=== PATIENT | female | born 1945 | race Caucasian/White ===

== ENCOUNTER 2021-03-02 11:18 | Outpatient (REF) | payer MEDICARE, SELFPAY ==
[2021-03-02 12:23] LABS: MANUAL DIFF FLAG NO
[2021-03-02 12:27] LABS: Basophils Percent Auto 0.4 % (0-2); Eosinophils Absolute Auto 0.1 X10*3/uL (0.0-0.4); Eosinophils Percent Auto 1.3 % (0-4); Hematocrit 43.9 % (37-47); Hemoglobin 13.9 g/dl (12.0-16.0); Imm Gran Abs Auto 0.02 X10*3/uL (0.00-0.03); Imm Gran Pct Auto 0.3 % (0.0-0.4); Lymphocytes Absolute Auto 1.4 X10*3/uL (1.2-4.9); Lymphocytes Percent Auto 19.8 % (20-40); Mean Corpuscular HGB Conc 31.7 g/dl (31.0-35.0); Mean Corpuscular Hemoglobin 28.8 pg (27.0-33.0); Mean Corpuscular Volume 90.9 fL (80-98); Mean Platelet Volume 10.7 fL (9.4-12.3); Monocytes Absolute Auto 0.5 X10*3/uL (0.1-1.2); Monocytes Percent Auto 6.7 % (2-11); Neutrophils Percent Auto 71.5 % (45-73); Platelet Count 242 X10*3/uL (160-400); Red Blood Count 4.83 X10*6/uL (4.20-5.50); Red Cell Distribution Width 14.5 % (11.0-16.0)
[2021-03-02 13:14] LABS: Anion Gap 15 (12-20); Blood Urea Nitrogen 15 mg/dL (9-16); Calcium 9.9 mg/dL (8.4-10.2); Carbon Dioxide 27 mmol/L (22-29); Chloride 103 mmol/L (96-108); Estimated Glomerular Filt Rate > 60; Glucose Random 90 mg/dL (60-115); Potassium 4.7 mmol/L (3.3-5.1); Sodium 140 mmol/L (135-145)
[2021-03-02 13:17] LABS: Erythrocyte Sedimentation Rate 7 MM/HR (0-20)
[2021-03-02 13:39] LABS: T4 Thyroxine 7.3 ug/dL (4.5-12.0)
[2021-03-07 13:31] LABS: Vitamin D 25-OH, D2 <4 ng/mL; Vitamin D 25-OH, D3 30 ng/mL; Vitamin D 25-OH, Total 30 ng/mL (30-100)
== END 2021-03-02 11:19 | disposition home or self-care (01) ==
LOC: HO.LAB 11:18
PROVIDERS: PCP Internal Medicine; Visit Provider Psychiatry & Neurology Neurology
DX: I63.9 Cerebral infarction, unspecified (principal)
CPT/HCPCS: 36415; 80048; 82306; 84436; 84443; 85025; 85652

== ENCOUNTER 2023-04-21 12:58 | Emergency (ER) | payer MEDICARE, SELFPAY ==
--- NOTE | ~2023-04-21 | XR_ITS ---
EXAMINATION: XR CHEST CLINICAL INFORMATION: Chest pain COMPARISON: Chest radiograph 01/13/2011 TECHNIQUE: Frontal view of the chest was obtained. FINDINGS: The heart and mediastinal borders are within normal limits. No focal consolidation. No pleural effusion. No pneumothorax. Surgical clips overlie the lower left neck. No acute displaced rib fracture. Prominent gas-filled loop of bowel in the right upper quadrant. XR/XR chest 1V IMPRESSION: No focal consolidation, pneumothorax, or pleural effusion.
--- NOTE | 2023-04-21 13:02 | ECG_ITS ---
Test Reason : CHEST PAIN Blood Pressure : / mmHG Vent. Rate : 092 BPM Atrial Rate : 092 BPM P-R Int : 168 ms QRS Dur : 086 ms QT Int : 356 ms P-R-T Axes : 042 -35 010 degrees QTc Int : 440 ms Sinus rhythm with occasional Premature ventricular complexes Possible Left atrial enlargement Left axis deviation Minimal voltage criteria for LVH, may be normal variant ( R in aVL ) Possible Anterolateral infarct , age undetermined Abnormal ECG When compared with ECG of 20-JUN-2006 07:45, Premature ventricular complexes are now Present Borderline criteria for Anterolateral infarct are now Present QRS axis Shifted left Referred By: Sofy Ponce Electronically Signed By:FANTA KOHLI
[2023-04-21 13:12] VITALS: BP 170/80; PULSE 93; RESP 18; TEMP 36.7; O2SAT 98; BMI 26.6
--- NOTE | 2023-04-21 13:13 | ED.CHESTPAIN ---
HPI - Chest Pain General Chief Complaint: Chest Pain Stated Complaint: chest pain Time Seen by Provider: 04/21/23 16:00 Source: patient and old records reviewed Mode of arrival: ambulatory Limitations: no limitations History of Present Illness HPI narrative: 78 yo female with history of CVA 2 years ago, hx HTN, hx endarterectomy who presents to the ER for evaluation of 2 separate episodes of central, nonradiating chest pain. She states 1st episode was yesterday at home after bending down to pick something up. Pain was central/lower chest, described as a tightness that lasted about 2-3 hours then subsided. No associated SOB, diaphoresis, nausea. She woke up this morning with a slight headache and some lightheadedness. She was at the grocery store when she developed the pain again in the same location. Lasted about an hour and then went away, resolved on arrival to the ER. Asymptomatic at this time. Patient denies hx similar episodes. No LE edema. Has been gaining some weight. Drinks 2 alcoholic beverages about 4 times per week. On arrival to the ER BP elevated 170-180s/80s. Baseline BP 120/60s. She states she has been compliant with her valsartan at home. complaint: chest pain Onset (ago): day(s) Timing of current episode: episodic Prior episodes: No Onset: during rest Pain location: substernal and epigastric Pain radiation: none Severity: moderate Quality: tightness Relieving factors: rest Exacerbating factors: nothing Treatment prior to arrival: none Risk Factors Coronary artery disease risk factors: hypertension Thoracic aortic dissection risk factors: none Related Data Home Medications Medication Instructions Recorded Confirmed atorvastatin 80 mg tablet (Lipitor) 80 mg PO BEDTIME 10/13/20 10/13/20 clopidogrel 75 mg tablet 75 mg PO DAILY 10/13/20 10/13/20 Previous Rx's Medication Instructions Recorded fenofibrate 54 mg tablet 54 mg PO DAILY 2 months #60 tabs 10/13/20 Allergies Allergy/AdvReac Type Severity Reaction Status Date / Time No Known Allergies Allergy Unverified 05/06/20 15:04 Review of Systems Review of Systems: Yes all other systems are reviewed and are negative PMFSH Past Medical History Medical History CVA (cerebral vascular accident) Hospital discharge follow-up Hypertension Osteopenia Surgical History H/O sinus surgery History of ankle surgery Social History Social History Alcohol intake: current Alcohol intake frequency: a few times a week Smoked in Last 30 Days: No Use of substances other than those prescribed or required for medical reasons: No Advance Directives: No Advance Directives Information Provided: Yes Physical Exam Vital Signs: Vital Signs: Last Vital Signs Temp 98.1 F 04/21/23 15:50 Pulse 78 04/21/23 17:28 Resp 13 04/21/23 17:28 BP 169/81 H 04/21/23 17:28 Pulse Ox 99 04/21/23 17:28 O2 Del Method Room Air 04/21/23 17:28 BMI result Body Mass Index 26.6 Appearance: Alert. Oriented X3. No acute distress. Head: normocephalic, atraumatic. Eyes: Pupils equal, round and reactive to light. ENT: Pharynx normal. No tonsillar swelling or exudate. Neck: Normal inspection. Neck supple. CVS: Normal heart rate and rhythm. Pulses normal. Respiratory: No respiratory distress. Breath sounds normal. Abdomen: Soft and nontender. +BS x4 Skin: Skin warm and dry. Normal skin color. Normal skin turgor. No rashes. Extremities: No lower extremity edema. No joint swelling. Neuro/psych: Oriented X 3. No motor deficit. No sensory deficit. CN II-XII intact. Normal speech and cognition. Course Course Course Narrative: RME: 78yo F w/PMHx CVA on ASA, presenting to the ED c/o substernal chest pain/pressure since yesterday after bending over, lasting about 2hrs. Admit sx resolved and then recurred today w/assoc lightheadedness while in [employer] around 11:30AM. CP resolved at present. Denies SOB, fever Ambulating w/steady gait EKG, labs, CXR ordered Full HPI, ROS and PE to be performed by primary ED provider. Medications Administered Discontinued Medications Generic Name Dose Route Start Last Admin Trade Name Freq PRN Reason Stop Dose Admin Amlodipine Besylate 10 mg 04/21/23 16:19 04/21/23 16:30 Amlodipine Besylate 10 Mg Tablet PO 04/21/23 16:20 10 mg ONCE ONE Administration Protocol Medical Decision Making Medical Decision Making [facility] Narrative: 78 yo female with history of CVA 2 years ago, hx HTN, hx endarterectomy who presents to the ER for evaluation of 2 separate episodes of central, nonradiating chest pain, along with some headache and lightheadedness. Found to be hypertensive to as high as 180/80 in the ER. Compliant w/ meds. No current chest pain, headache or vision changes. EKG without new ischemic changes. Troponin negative x1. Patient given PO amlodipine with improvement in SBP to 140-160s. 2nd troponin remained flat. she is feeling well. HEART score 3. Comfortable w/ discharge with plan to monitor BP at home, follow up with PCP and refer to cardiology. patient agrees w/ plan and all questions were answered Differential Diagnosis Differential Diagnoses: The differential diagnosis associated with the presentation includes HTN urgency, HTN emergency, ACS, PE, myocarditis, pericarditis, PNA, GERD, gastritis, anxiety Admission/Observation Consideration of admission/observation: Escalation of care including admission/observation considered elderly female presenting with chest pain Lab Data [facility] Lab Attestation statement: I reviewed the patient's lab results. negative troponin x2 04/21/23 13:23 04/21/23 13:23 Labs: Lab Results 04/21/23 04/21/23 04/21/23 Range/Units 13:23 13:23 13:23 WBC 9.9 (4.8-10.8) X10*3/uL RBC 5.30 (4.20-5.50) X10*6/uL Hgb 15.5 (12.0-16.0) g/dl Hct 46.8 (37.0-47.0) % MCV 88.3 (80.0-98.0) fL MCH 29.2 (27.0-33.0) pg MCHC 33.1 (31.0-35.0) g/dl RDW 14.5 (11.0-16.0) % Plt Count 236 (160-400) X10*3/uL MPV 9.9 (9.4-12.3) fL Immature Gran % (Auto) 0.9 H (0.0-0.4) % Neut % (Auto) 74.6 H (45-73) % Lymph % (Auto) 15.9 L (20-40) % [place] % (Auto) 7.8 (2-11) % Eos % (Auto) 0.5 (0-4) % Baso % (Auto) 0.3 (0-2) % Lymph # (Auto) 1.6 (1.2-4.9) X10*3/uL [place] # (Auto) 0.8 (0.1-1.2) X10*3/uL Eos # (Auto) 0.1 (0.0-0.4) X10*3/uL Baso # (Auto) 0.0 (0.0-0.2) X10*3/uL Abs Immat Gran (auto) 0.09 H (0.00-0.03) X10*3/uL Absolute Neuts (auto) 7.4 (2.0-8.3) x10*3/uL Absolute Nucleated RBC 0.000 (0.0-0.012) X10*3/uL Nucleated RBC % (auto) 0.0 (0.0-0.2) /100WBC PT (11.1-13.3) SEC INR (0.9-1.1) Sodium 136 (135-145) mmol/L Potassium 4.4 (3.3-5.1) mmol/L Chloride 100 (96-108) mmol/L Carbon Dioxide 28 (22-29) mmol/L Anion Gap 12 (12-20) BUN 17 H (9-16) mg/dL Creatinine 0.74 (0.5-1.4) mg/dL Estim Creat Clear Calc 59.2 Estimated GFR > 60 Random Glucose 119 H (60-115) mg/dL Calcium 10.2 (8.4-10.2) mg/dL Magnesium 2.3 (1.6-2.6) mg/dL Total Bilirubin 0.8 (0.0-1.0) mg/dL Direct Bilirubin 0.3 (0.0-0.5) mg/dL AST 21 (5-31) U/L ALT 21 (0-31) U/L Alkaline Phosphatase 60 (39-117) U/L Troponin I High Sens < 2.7 (<3.5-17.0) ng/L B-Natriuretic Peptide (<100) pg/mL Total Protein 7.0 (6.5-8.0) g/dL Albumin 4.1 (3.5-5.0) g/dL 04/21/23 04/21/23 04/21/23 Range/Units 13:23 13:54 16:14 WBC (4.8-10.8) X10*3/uL RBC (4.20-5.50) X10*6/uL Hgb (12.0-16.0) g/dl Hct (37.0-47.0) % MCV (80.0-98.0) fL MCH (27.0-33.0) pg MCHC (31.0-35.0) g/dl RDW (11.0-16.0) % Plt Count (160-400) X10*3/uL MPV (9.4-12.3) fL Immature Gran % (Auto) (0.0-0.4) % Neut % (Auto) (45-73) % Lymph % (Auto) (20-40) % [place] % (Auto) (2-11) % Eos % (Auto) (0-4) % Baso % (Auto) (0-2) % Lymph # (Auto) (1.2-4.9) X10*3/uL [place] # (Auto) (0.1-1.2) X10*3/uL Eos # (Auto) (0.0-0.4) X10*3/uL Baso # (Auto) (0.0-0.2) X10*3/uL Abs Immat Gran (auto) (0.00-0.03) X10*3/uL Absolute Neuts (auto) (2.0-8.3) x10*3/uL Absolute Nucleated RBC (0.0-0.012) X10*3/uL Nucleated RBC % (auto) (0.0-0.2) /100WBC PT 11.6 (11.1-13.3) SEC INR 1.0 (0.9-1.1) Sodium (135-145) mmol/L Potassium (3.3-5.1) mmol/L Chloride (96-108) mmol/L Carbon Dioxide (22-29) mmol/L Anion Gap (12-20) BUN (9-16) mg/dL Creatinine (0.5-1.4) mg/dL Estim Creat Clear Calc Estimated GFR Random Glucose (60-115) mg/dL Calcium (8.4-10.2) mg/dL Magnesium (1.6-2.6) mg/dL Total Bilirubin (0.0-1.0) mg/dL Direct Bilirubin (0.0-0.5) mg/dL AST (5-31) U/L ALT (0-31) U/L Alkaline Phosphatase (39-117) U/L Troponin I High Sens < 2.7 (<3.5-17.0) ng/L B-Natriuretic Peptide 24 (<100) pg/mL Total Protein (6.5-8.0) g/dL Albumin (3.5-5.0) g/dL Independent Interpretation I performed an independent interpretation of an: EKG and Plain X-Ray Interpretation: EKG w/ 92 bpm. normal sinus rhythm, PVCs present, isolated twaves inversion in leads III & V1 only. no ST segment elevations or depressions cxr reviewed - no PNA or acute abnormalities, agree w/ radiology read Radiology Impression Discussion of test interpretation with radiology: I have reviewed the radiologist's reading. Radiologist Impression: EXAMINATION: XR CHEST CLINICAL INFORMATION: Chest pain COMPARISON: Chest radiograph 01/13/2011 TECHNIQUE: Frontal view of the chest was obtained. FINDINGS: The heart and mediastinal borders are within normal limits. No focal consolidation. No pleural effusion. No pneumothorax. Surgical clips overlie the lower left neck. No acute displaced rib fracture. Prominent gas-filled loop of bowel in the right upper quadrant. XR/XR chest 1V IMPRESSION: No focal consolidation, pneumothorax, or pleural effusion. External Record Review External record reviewed: Office record and Outpatient record Tests considered The following testing was considered but not selected: CT head considered Prescription Management I considered prescription management with: Other (antihypertensive) Chronic Conditions Patient?s care impacted by: Hypertension Scores Heart Score History: -0- slightly suspicious ECG: -0- normal Age: -2- > or = 65 Risk factory: -1- 1 or 2 risk factors Troponin: -0- < or = normal limit Score: 3 Risk: 1.7% Critical Care Time Critical Care Time Critical Care Time: No Discharge Plan Discharge Clinical Impression: Atypical chest pain, Hypertension Patient Disposition: Home, Self-Care Instructions: Hypertension (ED) Additional Instructions: Your lab workup today was unremarkable. Your EKG was reassuring. Your blood pressure was elevated and most likely contributed to your symptoms. Recommend monitoring your BP at home 2x per day, or more frequently if symptomatic. Decrease your salt intake and increase aerobic exercise Follow up with your doctor next week Recommend following up with Cardiology for further evaluation - call for an appointment, name and number below If you develop new or worsening symptoms call 911 or come back to the ER for further evaluation. Prescriptions: No Action clopidogrel 75 mg tablet 75 mg PO DAILY atorvastatin [Lipitor] 80 mg tablet 80 mg PO BEDTIME fenofibrate 54 mg tablet 54 mg PO DAILY 60 Days Qty: 60 0RF Referrals: [facility] [place] [facility] [Provider Group] Ramon Soto MD [Primary Care Provider] -
[2023-04-21 13:28] LABS: MANUAL DIFF FLAG NO
[2023-04-21 13:31] LABS: Basophils Percent Auto 0.3 % (0-2); Eosinophils Absolute Auto 0.1 X10*3/uL (0.0-0.4); Eosinophils Percent Auto 0.5 % (0-4); Hematocrit 46.8 % (37.0-47.0); Hemoglobin 15.5 g/dl (12.0-16.0); Imm Gran Abs Auto 0.09 X10*3/uL (0.00-0.03); Imm Gran Pct Auto 0.9 % (0.0-0.4); Lymphocytes Absolute Auto 1.6 X10*3/uL (1.2-4.9); Lymphocytes Percent Auto 15.9 % (20-40); Mean Corpuscular HGB Conc 33.1 g/dl (31.0-35.0); Mean Corpuscular Hemoglobin 29.2 pg (27.0-33.0); Mean Corpuscular Volume 88.3 fL (80.0-98.0); Mean Platelet Volume 9.9 fL (9.4-12.3); Monocytes Absolute Auto 0.8 X10*3/uL (0.1-1.2); Monocytes Percent Auto 7.8 % (2-11); Neutrophils Absolute Auto 7.4 x10*3/uL (2.0-8.3); Neutrophils Percent Auto 74.6 % (45-73); Platelet Count 236 X10*3/uL (160-400); Red Cell Distribution Width 14.5 % (11.0-16.0); White Blood Count 9.9 X10*3/uL (4.8-10.8)
[2023-04-21 13:51] LABS: Alanine Aminotransferase 21 U/L (0-31); Albumin Level 4.1 g/dL (3.5-5.0); Alkaline Phosphatase 60 U/L (39-117); Anion Gap 12 (12-20); Aspartate Amino Transferase 21 U/L (5-31); Bilirubin Direct 0.3 mg/dL (0.0-0.5); Bilirubin Total 0.8 mg/dL (0.0-1.0); Blood Urea Nitrogen 17 mg/dL (9-16); Calcium 10.2 mg/dL (8.4-10.2); Carbon Dioxide 28 mmol/L (22-29); Chloride 100 mmol/L (96-108); Creatinine Clr Calc Pharmacy 59.2; Estimated Glomerular Filt Rate > 60; Glucose Random 119 mg/dL (60-115); Magnesium 2.3 mg/dL (1.6-2.6); Potassium 4.4 mmol/L (3.3-5.1); Sodium 136 mmol/L (135-145)
[2023-04-21 13:52] LABS: B Type Natriuretic Peptide 24 pg/mL (<100)
[2023-04-21 14:12] LABS: Prothrombin Time 11.6 SEC (11.1-13.3)
[2023-04-21 14:39] LABS: Troponin-I High Sensitivity < 2.7 ng/L (<3.5-17.0)
[2023-04-21 15:50] VITALS: BP 185/85; PULSE 80; RESP 13; TEMP 36.7; O2SAT 98
[2023-04-21] MEDS: amLODIPine Besylate 10 MG TABLET PO (16:30)
[2023-04-21 16:36] VITALS: BP 197/77; PULSE 88; RESP 16; O2SAT 97
[2023-04-21 16:45] LABS: Troponin-I High Sensitivity < 2.7 ng/L (<3.5-17.0)
[2023-04-21 17:28] VITALS: BP 169/81; PULSE 78; RESP 13; O2SAT 99
[2023-04-21 18:34] VITALS: BP 147/93; PULSE 96; RESP 14; O2SAT 98
== END 2023-04-21 18:36 | disposition home or self-care (01) ==
PROVIDERS: Physician Assistant; Emergency Provider Student in an Organized Health Care Education/Training Program; PCP Internal Medicine
DX: R07.89 Other chest pain (principal); I10 Essential (primary) hypertension; Z86.73 Personal history of transient ischemic attack (TIA), and cerebral infarction without residual deficits; Z79.899 Other long term (current) drug therapy
CPT/HCPCS: 36415; 71045; 80048; 80076; 83735; 83880; 84484; 85025; 85610; 93005; 99283; 99285

== ENCOUNTER 2023-06-12 18:17 | Outpatient (REF) | payer MEDICARE, SELFPAY ==
--- NOTE | ~2023-06-12 | MR_ITS ---
MRI OF THE BRAIN WITHOUT IV CONTRAST INDICATION: Stroke COMPARISON: None available. TECHNIQUE: Multiplanar multisequence MR imaging of the brain was obtained without IV contrast. FINDINGS: No acute intracranial hemorrhage or infarct. Sequelae of prior left basal ganglia infarct. Scattered and confluent periventricular white matter T2/FLAIR hyperintensities, nonspecific however commonly seen with small vessel ischemic disease. No midline shift or hydrocephalus. No acute extra-axial fluid collections. The osseous structures are unremarkable. The pituitary gland, pineal gland and remaining midline structures are unremarkable. Sequelae of right lens replacement. Otherwise, no orbital pathology. Mucosal thickening of the paranasal sinuses. The mastoid air cells are clear. MR/MR head/brain wo con IMPRESSION: -No acute intracranial abnormality. Specifically, no evidence of acute infarct. -Chronic microangiopathy disease.
== END 2023-06-12 18:18 | disposition home or self-care (01) ==
LOC: HO.MRI 18:17
PROVIDERS: PCP Internal Medicine; Visit Provider Psychiatry & Neurology Neurology
DX: I63.9 Cerebral infarction, unspecified (principal)
CPT/HCPCS: 70551

== ENCOUNTER 2024-11-17 10:52 | Outpatient (RCR) | payer MEDICARE, SELFPAY | END 2024-11-18 13:39 | disposition home or self-care (01) | LOC: HO.PT 10:52 | PROVIDERS: PCP Internal Medicine; Visit Provider Orthopaedic Surgery | DX: Z47.1 Aftercare following joint replacement surgery (principal); Z96.652 Presence of left artificial knee joint | CPT/HCPCS: 97110; 97162 ==